=== PATIENT | female | born 1995 | race Caucasian/White ===

== ENCOUNTER 2018-04-17 13:17 | Outpatient (CLI) | payer OTHER | END 2018-04-17 15:00 | disposition home or self-care (01) | LOC: OBT 13:17 → L-D 13:17 → OBT 15:00 | DX: O62.9 Abnormality of forces of labor, unspecified (principal); Z3A.37 37 weeks gestation of pregnancy | CPT/HCPCS: 76818 ==

== ENCOUNTER 2018-04-21 09:32 | Inpatient (IN) | payer OTHER ==
[2018-04-21] MEDS ORDERED: BUTORPHANOL 2 MG INJ IV (10:30)
[2018-04-21] MEDS ORDERED: MISOPROSTOL 200 MCG TAB PR ×3 (10:30→18:00)
[2018-04-21] MEDS ORDERED: METHYLERGONOVINE 0.2 MG INJ IM ×3 (10:30→18:00)
[2018-04-21] MEDS ORDERED: OXYTOCIN 30 UNITS/LR 500 ML IV ×3 (10:30→18:00)
[2018-04-21] MEDS ORDERED: LIDOCAINE 1% (MPF) 30 ML INJ INJ (10:30)
[2018-04-21] MEDS ORDERED: CARBOPROST 250 MCG INJ IM ×3 (10:30→18:00)
[2018-04-21] MEDS: LACTATED RINGER'S 1,000 ML IV* (10:44)
[2018-04-21 11:11] LABS: ADD MAN DIFF? NO
[2018-04-21 11:15] LABS: BASOPHILS % 0.1 % (0.0-2.0); EOSINOPHILS % 0.4 % (0.0-7.0); HEMATOCRIT 36.8 % (37.0-47.0); HEMOGLOBIN 12.4 g/dl (12.0-16.0); LYMPHOCYTES # 1.1 10^3/ul (0.8-2.9); LYMPHOCYTES % 15.2 % (15.0-51.0); MEAN CORPUSCULAR HEMOGLOBIN 30.8 pg (29.0-33.0); MEAN CORPUSCULAR HGB CONC 33.7 g/dl (32.0-37.0); MEAN CORPUSCULAR VOLUME 91.3 fl (82.0-101.0); MEAN PLATELET VOLUME 11.5 fl (7.4-10.4); MONOCYTE # 0.8 10^3/ul (0.3-0.9); NEUTROPHIL # 5.2 10^3/ul (1.6-7.5); PLATELET COUNT 138 10^3/UL (140-415); RED BLOOD COUNT 4.03 10^6/ul (4.20-5.40); RED CELL DISTRIBUTION WIDTH 12.9 % (11.5-14.5)
[2018-04-21 11:15] LABS: WHITE BLOOD COUNT 7.1 10^3/ul (4.8-10.8)
[2018-04-21 11:37] LABS: PARTIAL THROMBOPLASTIN TIME 30.5 Sec (25.0-35.0)
[2018-04-21] MEDS: OXYTOCIN 30 UNITS/LR 500 ML IV ×4 (11:39→19:24)
[2018-04-21] MEDS: OXYTOCIN 30 UNITS/LR 500 ML IVPB (11:52)
[2018-04-21 12:23] LABS: PROTIME 12.3 Sec (11.9-14.9)
[2018-04-21 12:24] LABS: HEPATITIS B SURFACE ANTIGEN NEGATIVE (NEGATIVE)
[2018-04-21] MEDS: IBUPROFEN 600 MG TAB PO ×3 (13:48→23:36)
[2018-04-21] MEDS ORDERED: NACL 0.9% 3 ML SYG IV (15:30)
[2018-04-21] MEDS ORDERED: HYDROCODONE/APAP (5/325) TAB PO ×2 (18:00)
[2018-04-21] MEDS ORDERED: DIBUCAINE 1% 30 GM OINT PR (18:00)
[2018-04-21] MEDS ORDERED: ACETAMINOPHEN 325 MG TAB PO (18:00)
[2018-04-21] MEDS ORDERED: ONDANSETRON 4 MG INJ IV (18:00)
[2018-04-21] MEDS ORDERED: OXYCODONE/ASPIRIN (4.88/325) TAB PO ×2 (18:00)
[2018-04-21] MEDS ORDERED: METHYLERGONOVINE 0.2 MG TAB PO (18:00)
[2018-04-21] MEDS: WITCH HAZEL/GLYCERIN PAD PR (18:49)
[2018-04-21] MEDS: BENZOCAINE 20% 56 ML SPRAY TOP (18:49)
[2018-04-21] MEDS: LANOLIN 7 GM TUBE TOP (18:50)
[2018-04-21] MEDS: SENNA/DOCUSATE NA (8.6MG/50MG) TAB PO (20:55)
[2018-04-21 21:41] LABS: RAPID PLASMA REAGIN NONREACTIVE (NR)
[2018-04-22] MEDS: IBUPROFEN 600 MG TAB PO ×4 (05:49→23:46)
[2018-04-22 08:58] LABS: ADD MAN DIFF? NO
[2018-04-22] MEDS: SENNA/DOCUSATE NA (8.6MG/50MG) TAB PO ×2 (09:00→20:38)
[2018-04-22 09:01] LABS: WHITE BLOOD COUNT 7.5 10^3/ul (4.8-10.8)
[2018-04-22 09:01] LABS: BASOPHILS % 0.3 % (0.0-2.0); EOSINOPHILS % 0.4 % (0.0-7.0); HEMATOCRIT 35.3 % (37.0-47.0); HEMOGLOBIN 11.9 g/dl (12.0-16.0); LYMPHOCYTES # 1.1 10^3/ul (0.8-2.9); LYMPHOCYTES % 14.8 % (15.0-51.0); MEAN CORPUSCULAR HEMOGLOBIN 31.2 pg (29.0-33.0); MEAN CORPUSCULAR HGB CONC 33.7 g/dl (32.0-37.0); MEAN CORPUSCULAR VOLUME 92.7 fl (82.0-101.0); MEAN PLATELET VOLUME 11.3 fl (7.4-10.4); MONOCYTE # 0.9 10^3/ul (0.3-0.9); MONOCYTES % 11.5 % (0.0-11.0); NEUTROPHIL # 5.5 10^3/ul (1.6-7.5); NEUTROPHILS % 72.7 % (39.0-77.0); PLATELET COUNT 138 10^3/UL (140-415); RED BLOOD COUNT 3.81 10^6/ul (4.20-5.40); RED CELL DISTRIBUTION WIDTH 13.1 % (11.5-14.5)
[2018-04-23] MEDS: IBUPROFEN 600 MG TAB PO ×2 (05:41→12:10)
[2018-04-23] MEDS: SENNA/DOCUSATE NA (8.6MG/50MG) TAB PO (09:00)
[2018-04-23] MEDS: MEASLES,MUMPS,RUBELLA VACCINE INJ SC* (09:00)
== END 2018-04-23 12:35 | disposition home or self-care (01) | DRG 775 ==
LOC: OBT 09:32 → L-D 09:32 → OBT 10:00 → L-D 10:00 → PP1 14:46
PROVIDERS: Obstetrics & Gynecology
PROC: 10E0XZZ Delivery of Products of Conception, External Approach (ICD-10-PCS; principal; 2018-04-21)
DX: O80 Encounter for full-term uncomplicated delivery (principal); Z3A.37 37 weeks gestation of pregnancy; Z37.0 Single live birth
CPT/HCPCS: 85025; 85610; 85730; 86592; 86850; 86900; 86901; 87340